=== PATIENT | female | born 1995 | race Hispanic/Latino ===

== ENCOUNTER 2018-09-13 20:02 | Emergency (ER) | payer OTHER ==
[2018-09-13 21:21] LABS: RAPID GROUP A STREP NEGATIVE (NEGATIVE)
[2018-09-13] MEDS ORDERED: IBUPROFEN 600 MG TABLET ONE (21:40)
[2018-09-13 21:56] LABS: APPEARANCE,URINE Clear (CLEAR); BILIRUBIN,URINE Negative (NEGATIVE); COLOR,URINE Yellow (YELLOW); GLUCOSE, URINE (UA) Negative (NEGATIVE); KETONES,URINE Trace mg/dL (NEGATIVE); LEUKOCYTE ESTERASE ,URINE Trace (NEGATIVE); NITRATE,URINE Negative (NEGATIVE); OCCULT BLOOD,URINE Negative (NEGATIVE); PROTEIN,URINE Trace mg/dL (NEGATIVE); UROBILINOGEN,URINE 0.2 mg/dL (0.2-1.0)
[2018-09-13 22:09] LABS: BACTERIA,URINE None Seen /HPF (None Seen); MUCUS,URINE Moderate LPF (None Seen); RBC,URINE None Seen /HPF (0-1); WBC,URINE 0-1 /HPF (0-1)
== END 2018-09-13 22:22 | disposition home or self-care (01) ==
LOC: EDH 20:02
DX: J11.1 Influenza due to unidentified influenza virus with other respiratory manifestations (principal); B34.9 Viral infection, unspecified; Z88.1 Allergy status to other antibiotic agents
CPT/HCPCS: 81001; 81025; 87804; 87880

== ENCOUNTER 2018-12-24 15:19 | Emergency (ER) | payer OTHER ==
[2018-12-24 15:40] LABS: APPEARANCE,URINE Clear (CLEAR); BILIRUBIN,URINE Negative (NEGATIVE); COLOR,URINE Dark Yellow (YELLOW); GLUCOSE, URINE (UA) Negative (NEGATIVE); KETONES,URINE Trace mg/dL (NEGATIVE); LEUKOCYTE ESTERASE ,URINE Trace (NEGATIVE); NITRATE,URINE Negative (NEGATIVE); OCCULT BLOOD,URINE Negative (NEGATIVE); PROTEIN,URINE Negative (NEGATIVE)
[2018-12-24] MEDS ORDERED: METHYLPREDNISOLONE SOD SUCC 125MG/2ML VIAL ONE (15:41)
[2018-12-24 15:42] LABS: HCG,QUAL RESULT NEGATIVE (NEGATIVE)
[2018-12-24] MEDS ORDERED: IPRATROPIUM/ALBUTEROL SULFATE 3 ML SOLUTION IH ONE (15:48)
[2018-12-24 15:50] LABS: BACTERIA,URINE Few /HPF (None Seen); MUCUS,URINE Moderate LPF (None Seen)
== END 2018-12-24 17:19 | disposition home or self-care (01) ==
LOC: EDH 15:19
DX: J45.40 Moderate persistent asthma, uncomplicated (principal); Z88.1 Allergy status to other antibiotic agents
CPT/HCPCS: 71045; 81001; 81025; 87088; 94640; 96372; 99285; J2930

== ENCOUNTER 2019-03-23 19:15 | Emergency (ER) | payer OTHER | END 2019-03-23 19:56 | disposition home or self-care (01) | LOC: EDH 19:15 | DX: M79.89 Other specified soft tissue disorders (principal); J45.909 Unspecified asthma, uncomplicated; Z72.0 Tobacco use; Z88.1 Allergy status to other antibiotic agents | CPT/HCPCS: 99281 ==